=== PATIENT | female | born 1950 | race African-American/Black ===

== ENCOUNTER 2021-04-03 12:42 | Emergency (ER) | payer OTHER ==
[~2021-04-03] VITALS: Ht 165.1 cm; Wt 104.3 kg
[2021-04-03 13:08] VITALS: BP 185/86
[2021-04-03] MEDS ORDERED: VALACYCLOVIR1000 MG PO (16:03)
== END 2021-04-03 16:00 | disposition home or self-care (01) ==
LOC: ER 12:42
DX: B02.30 Zoster ocular disease, unspecified (principal); R06.02 Shortness of breath; I10 Essential (primary) hypertension; Z98.890 Other specified postprocedural states; Z98.85 Transplanted organ removal status